=== PATIENT | male | born 1980 | race Caucasian/White ===

== ENCOUNTER 2020-12-21 14:38 | Outpatient (REF) | payer OTHER, SELFPAY ==
--- NOTE | ~2020-12-21 | XR_ITS ---
EXAMINATION: XR LUMBOSACRAL SPINE CLINICAL INFORMATION: Dorsal pain. COMPARISON: None. TECHNIQUE: Three views of the lumbosacral spine. FINDINGS: There is maintained lumbar lordosis. The vertebral heights, alignment are normal. There is mild loss of L4-L5 disc height. The rest the disc heights are normal. There is mild ventral spondylosis L3 vertebra. No visible acute fracture, dislocation or lytic process. The paravertebral soft tissues are normal. The SI joints are symmetrical and normal. XR/XR lumbar spine 2-3V IMPRESSION: Mild degenerative disc changes L4-L5 and L5-S1 disc levels. There is mild ventral spondylosis. No acute fracture, dislocation or subluxation seen.
== END 2020-12-21 14:39 | disposition home or self-care (01) ==
LOC: HO.XRAY 14:38
PROVIDERS: PCP Internal Medicine; Visit Provider Internal Medicine
DX: M54.9 Dorsalgia, unspecified (principal)
CPT/HCPCS: 72100

== ENCOUNTER 2021-06-10 09:01 | Outpatient (REF) | payer OTHER, SELFPAY ==
[2021-06-10 10:29] LABS: MANUAL DIFF FLAG NO
[2021-06-10 10:45] LABS: Basophils Percent Auto 0.3 % (0-2); Eosinophils Absolute Auto 0.2 X10*3/uL (0.0-0.4); Eosinophils Percent Auto 2.2 % (0-4); Hemoglobin 14.1 g/dl (14.0-18.0); Imm Gran Abs Auto 0.04 X10*3/uL (0.00-0.03); Imm Gran Pct Auto 0.4 % (0.0-0.4); Lymphocytes Absolute Auto 1.9 X10*3/uL (1.2-4.9); Lymphocytes Percent Auto 18.5 % (20-40); Mean Corpuscular HGB Conc 32.8 g/dl (31.0-36.0); Mean Corpuscular Hemoglobin 27.2 pg (27.0-33.0); Mean Corpuscular Volume 82.9 fL (80-98); Mean Platelet Volume 10.4 fL (9.4-12.4); Monocytes Absolute Auto 0.8 X10*3/uL (0.1-1.2); Monocytes Percent Auto 7.5 % (2-11); Neutrophils Absolute Auto 7.5 X10*3/uL (2.0-8.3); Neutrophils Percent Auto 71.1 % (45-73); Platelet Count 226 X10*3/uL (160-400); Red Blood Count 5.19 X10*6/uL (4.60-5.80); Red Cell Distribution Width 13.4 % (11.0-16.0); White Blood Count 10.5 X10*3/uL (4.8-10.8)
[2021-06-10 11:09] LABS: Alanine Aminotransferase 26 U/L (0-40); Albumin Level 4.1 g/dL (3.5-5.0); Alkaline Phosphatase 94 U/L (39-117); Anion Gap 12 (12-20); Aspartate Amino Transferase 24 U/L (5-37); Bilirubin Total 0.3 mg/dL (0.0-1.0); Blood Urea Nitrogen 9 mg/dL (9-16); Calcium 9.2 mg/dL (8.4-10.2); Carbon Dioxide 27 mmol/L (22-29); Chloride 104 mmol/L (96-108); Cholesterol 168 mg/dL; Estimated Glomerular Filt Rate > 60; Glucose Fasting 109 mg/dL (60-99); HDL Cholesterol 48 mg/dL; LDL Cholesterol Calculated 102 mg/dl; Potassium 4.4 mmol/L (3.3-5.1); Sodium 139 mmol/L (135-145); Total Protein 6.8 g/dL (6.5-8.0); Triglycerides 91 mg/dL
[2021-06-10 11:14] LABS: Thyroid Stimulating Hormone 0.84 uIU/mL (0.32-4.0)
== END 2021-06-10 09:02 | disposition home or self-care (01) ==
LOC: HO.LAB 09:01
PROVIDERS: PCP Internal Medicine; Visit Provider Internal Medicine
DX: Z00.00 Encounter for general adult medical examination without abnormal findings (principal); E11.9 Type 2 diabetes mellitus without complications; E03.9 Hypothyroidism, unspecified; R30.0 Dysuria
CPT/HCPCS: 36415; 80053; 80061; 84443; 85025; 87086

== ENCOUNTER 2021-06-17 09:22 | Outpatient (REF) | payer OTHER, SELFPAY ==
[2021-06-17 10:13] LABS: Appearance Urine CLOUDY; Color Urine YELLOW; Glucose Urine UA NEG (NEG); Leukocyte Esterase Urine 3+ (NEG); Nitrite Urine NEG (NEG); UACC Culture Trigger YES; Urine Blood 3+ (NEG); Urine Ketones NEG (NEG); Urine Protein 1+ MG/DL (NEG-TRACE)
[2021-06-17 11:02] LABS: Sperm Urine NOTED
== END 2021-06-17 09:23 | disposition home or self-care (01) ==
LOC: HO.LAB 09:22
PROVIDERS: PCP Internal Medicine; Visit Provider Internal Medicine
DX: R30.0 Dysuria (principal)
CPT/HCPCS: 81001; 81003; 87086

== ENCOUNTER 2021-06-29 09:54 | Outpatient (REF) | payer OTHER, SELFPAY ==
--- NOTE | ~2021-06-29 | XR_ITS ---
EXAMINATION: XR ABDOMEN KUB CLINICAL INDICATION: Hematuria. COMPARISON: None TECHNIQUE: AP view of the abdomen. FINDINGS: The bowel gas pattern is normal with no evidence of ileus or obstruction. No unusual soft tissue calcifications are noted. No renal calculi are visualized. There are several calcified phleboliths in the pelvis. The bones are unremarkable. XR/XR KUB IMPRESSION: Unremarkable examination.
== END 2021-06-29 09:55 | disposition home or self-care (01) ==
LOC: HO.XRAY 09:54
PROVIDERS: PCP Internal Medicine; Visit Provider Internal Medicine
DX: R31.9 Hematuria, unspecified (principal); I87.8 Other specified disorders of veins
CPT/HCPCS: 74018

== ENCOUNTER 2021-07-03 10:44 | Outpatient (REF) | payer OTHER, SELFPAY ==
--- NOTE | ~2021-07-03 | XR_ITS ---
EXAMINATION: XR LUMBOSACRAL SPINE CLINICAL INFORMATION: Dorsalgia. COMPARISON: Radiographs dated 12/21/2020. TECHNIQUE: AP and lateral views of the lumbar spine and lateral view of the lumbosacral junction. FINDINGS: The vertebral bodies and posterior elements are normal. The disc spaces are preserved, and the vertebral alignment is normal. There is multi-level mild lower thoracic and lumbar spondylosis. The paraspinal soft tissues are normal. XR/XR lumbar spine 2-3V IMPRESSION: 1. No acute fracture or spondylolisthesis is seen. 2. The disc spaces are well-maintained. 3. There is multi-level mild lower thoracic and lumbar spondylosis.
[2021-07-03 18:05] LABS: Appearance Urine HAZY; Color Urine YELLOW; Glucose Urine UA NEG (NEG); Leukocyte Esterase Urine 2+ (NEG); Nitrite Urine NEG (NEG); PH 6.5 (5.0-8.0); UACC Culture Trigger YES; Urine Blood TRACE (NEG); Urine Ketones NEG (NEG); Urine Protein TRACE MG/DL (NEG-TRACE)
[2021-07-03 18:20] LABS: Bacteria Urine TRACE /LPF; WBC Urine 50-75 /HPF (0-4)
== END 2021-07-03 10:45 | disposition home or self-care (01) ==
LOC: HO.XRAY 10:44
PROVIDERS: PCP Internal Medicine; Visit Provider Internal Medicine
DX: M54.9 Dorsalgia, unspecified (principal); R31.9 Hematuria, unspecified; R30.0 Dysuria
CPT/HCPCS: 72100; 81001; 87086

== ENCOUNTER 2021-07-18 13:36 | Outpatient (REF) | payer OTHER, SELFPAY ==
--- NOTE | ~2021-07-18 | US_ITS ---
EXAMINATION: US SCROTUM CLINICAL INFORMATION: Scrotal pain/swelling. COMPARISON: None TECHNIQUE: A sonogram of the scrotum was performed assessing hung-scale appearance and color Doppler flow. Spectral Doppler analysis of the arterial and venous flow were performed in the testes bilaterally. FINDINGS: RIGHT: Right testicle measures 4.6 x 2.7 x 3.3 cm, volume 21.5 mL. No focal testicular parenchymal lesions are visualized except for focal calcification. Spectral Doppler analysis of the arterial and venous flow is normal in the right testis. Right epididymal head is normal in size. There is a small right hydrocele. No varicocele is seen. Right epididymal Doppler flow is normal. LEFT: Left testicle measures 4.5 x 2.5 x 2.8 cm, volume 16.5 mL. No focal testicular parenchymal lesions are visualized except for focal calcification. Spectral Doppler analysis of the arterial and venous flow is normal in the left testis. Left epididymal head is normal in size. No left hydrocele or varicocele is seen. Left epididymal Doppler flow is normal. US/US scrotum IMPRESSION: Bilateral echogenic testicular calcifications slightly larger than the right. No other focal testicular lesion. There is normal vascular flow seen to both testes and epididymis on Doppler exam. Small right hydrocele.
== END 2021-07-18 13:37 | disposition home or self-care (01) ==
LOC: HO.US 13:36
PROVIDERS: PCP Internal Medicine; Visit Provider Internal Medicine
DX: N50.82 Scrotal pain (principal)
CPT/HCPCS: 76870

== ENCOUNTER 2021-10-11 10:17 | Outpatient (REF) | payer OTHER, SELFPAY ==
[2021-10-11 10:51] LABS: Binax Internal Control QC Valid; Binax Lot number: 9864; Binax Now Covid-19 Ag Positive (Negative)
== END 2021-10-11 10:18 | disposition home or self-care (01) ==
LOC: HO.LAB 10:17
PROVIDERS: Visit Provider Internal Medicine
DX: Z20.822 Contact with and (suspected) exposure to COVID-19 (principal)
CPT/HCPCS: C9803

== ENCOUNTER → 2021-11-06 15:25 | Outpatient (BNVA) | payer OTHER, SELFPAY | PROVIDERS: PCP Internal Medicine; Visit Provider Urology ==

== ENCOUNTER 2022-06-13 09:48 | Outpatient (REF) | payer OTHER, SELFPAY ==
[2022-06-13 10:13] LABS: MANUAL DIFF FLAG NO
[2022-06-13 10:29] LABS: Basophils Absolute Auto 0.1 X10*3/uL (0.0-0.2); Basophils Percent Auto 1.1 % (0-2); Eosinophils Absolute Auto 0.1 X10*3/uL (0.0-0.4); Eosinophils Percent Auto 2.1 % (0-4); Imm Gran Abs Auto 0.01 X10*3/uL (0.00-0.03); Imm Gran Pct Auto 0.2 % (0.0-0.4); Lymphocytes Absolute Auto 1.7 X10*3/uL (1.2-4.9); Lymphocytes Percent Auto 35.2 % (20-40); Mean Corpuscular HGB Conc 33.3 g/dl (31.0-36.0); Mean Corpuscular Hemoglobin 27.9 pg (27.0-33.0); Mean Corpuscular Volume 83.8 fL (80.0-98.0); Mean Platelet Volume 9.7 fL (9.4-12.4); Monocytes Absolute Auto 0.4 X10*3/uL (0.1-1.2); Monocytes Percent Auto 7.5 % (2-11); Neutrophils Absolute Auto 2.5 x10*3/uL (2.0-8.3); Neutrophils Percent Auto 53.9 % (45-73); Platelet Count 241 X10*3/uL (160-400); Red Blood Count 5.01 X10*6/uL (4.60-5.80); Red Cell Distribution Width 13.5 % (11.0-16.0); White Blood Count 4.7 X10*3/uL (4.8-10.8)
[2022-06-13 10:56] LABS: Alanine Aminotransferase 37 U/L (0-40); Albumin Level 4.3 g/dL (3.5-5.0); Alkaline Phosphatase 55 U/L (39-117); Anion Gap 13 (12-20); Aspartate Amino Transferase 34 U/L (5-37); Bilirubin Total 0.5 mg/dL (0.0-1.0); Blood Urea Nitrogen 14 mg/dL (9-16); Calcium 9.1 mg/dL (8.4-10.2); Carbon Dioxide 29 mmol/L (22-29); Chloride 104 mmol/L (96-108); Cholesterol 227 mg/dL; Estimated Glomerular Filt Rate > 60; Glucose Fasting 90 mg/dL (60-99); HDL Cholesterol 60 mg/dL; LDL Cholesterol Calculated 119 mg/dl; Potassium 4.4 mmol/L (3.3-5.1); Sodium 142 mmol/L (135-145); Total Protein 7.1 g/dL (6.5-8.0); Triglycerides 241 mg/dL
== END 2022-06-13 09:49 | disposition home or self-care (01) ==
LOC: HO.LAB 09:48
PROVIDERS: PCP Internal Medicine; Visit Provider Internal Medicine
DX: Z13.0 Encounter for screening for diseases of the blood and blood-forming organs and certain disorders involving the immune mechanism (principal); I10 Essential (primary) hypertension; E78.5 Hyperlipidemia, unspecified
CPT/HCPCS: 36415; 80053; 80061; 85025

== ENCOUNTER 2023-04-16 13:23 | Outpatient (AMB) | payer OTHER, SELFPAY ==
[2023-04-16 13:23] VITALS: BP 110/80; PULSE 90; O2SAT 97; BMI 28.4
--- NOTE | 2023-04-16 13:23 | A.OFFPC_ITS ---
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 by: Self / Same As Patient Allergies Seasonal Allergies Allergy (Intermediate, Verified 04/16/23 13:24) sneezing, runny nose Medication List - Last Reconciled 04/16/23 by Joe Doty MD No Known Home Meds Tobacco use date assessed: 04/16/23 Dental Screening Dental Screen Date: 04/16/23 Did you have a dental visit in the last 12 months?: Yes Did you have a dental problem in the last 6 months where you did not have access to dental care?: No Was dental information given to patient?: Patient has dentist HPI L arm pain HPI Details left shoulder pain for a month; lifts alot at work [facility] Medical History Allergic rhinitis Hematuria Scrotal pain Surgical History No history of previous surgery Family History Mother No problems noted. Father No problems noted. 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 1. Little interest or pleasure in doing things: not at all 2. Feeling down, depressed, or hopeless: not at all 3. Trouble falling or staying asleep, or sleeping too much: not at all 4. Feeling tired or having little energy: not at all 5. Poor appetite or overeating: not at all 6. Feeling bad about yourself - or that you are a failure or have let yourself or your family down: not at all 7. Trouble concentrating on things, such as reading the newspaper or watching television: not at all 8. Moving or speaking so slowly that other people could have noticed. Or the opposite - being so fidgety or restless that you have been moving around a lot more than usual: not at all 9. Thoughts that you would be better off or of hurting yourself in some way: not at all Total score: 0 Depression Screening Interpretation: Negative Source: Developed by Drs. Shaun Lewis, Tatiana Whitmore, Denis Sharp and colleagues, with an educational sari from [employer]. Thrive Questionnaire Date Thrive assessed: 04/16/23 I am a: Patient What is your living situation today?: I have a steady place to live Within the past 12 months, did the food you bought not last and you didn't have the money to get more?: Never true Within the past 12 months, did you worry whether your food would run out before you got money to buy more?: Never true Do you have trouble paying for medicines?: No Do you have trouble getting transportation to medical appointments?: No Do you have trouble paying your heating and electricity bill?: No Do you have trouble taking care of your child, family member or friend?: No Do you have trouble with day-to-day activities such as bathing, preparing meals, shopping, managing finances, etc.?: No Are you currently unemployed and looking for a job?: No Are you interested in more education?: No Please select the resources that you would like help with: None Currently or been in a relationship where the following occur: no concerns reported AUDIT C Alcohol Use Questionnaire (AUDIT-C) 1. How often do you have a drink containing alcohol?: 2-4 times a month 2. How many drinks containing alcohol do you have on a typical day when you are drinking?: 1 or 2 3. How often do you have six or more drinks on one occasion?: Never Total Score: 2 Score Reviewed/Action Taken: Yes MANUEL-7 AMB Questionnaire MANUEL-7 Date MANUEL - 7 assessed: 04/16/23 Feeling nervous, anxious, or on edge: 1 = Several days Not being able to stop or control worryin = Several days Worrying too much about different things: 0 = Not at all Trouble relaxin = Not at all Being so restless that it is hard to sit still: 0 = Not at all Becoming easily annoyed or irritable: 0 = Not at all Feeling afraid as if something awful might happen: 0 = Not at all Total MANUEL-7 score (0-4 normal; 5-9 mild; 10-14 moderate; 15-21 severe): 2 Source: Developed by Drs. Shaun Lewis, Tatiana Whitmore, Denis Sharp and colleagues, with an educational sari from [employer]. MANUEL-7 Assessment Billing MANUEL-7 Assessment Tool: MANUEL-7 Assessment 91618 Review of Systems Const Denies chills, Denies headache(s) and Denies weight loss ENT Denies headache(s) Card Denies chest pain, Denies syncope, Denies irregular heart rhythm and Denies dyspnea Resp Denies chest congestion, Denies cough and Denies dyspnea GI Denies abdominal pain, Denies change in stool character, Denies nausea and Denies vomiting Musc Denies deformity and Denies joint swelling Neuro Denies confusion, Denies syncope and Denies headache(s) Psych Denies confusion Physical exam (Primary Care) Vital Signs: Last Vital Signs Pulse 90 04/16/23 13:23 BP 110/80 04/16/23 13:23 Pulse Ox 97 04/16/23 13:23 Oxygen Delivery Method Room Air 04/16/23 13:23 BMI result Body Mass Index 28.4 Tobacco/Smoking Status: Tobacco use Status Tobacco use date assessed 04/16/23 04/16/23 13:29 Patient Tobacco Use Status Current everyday Tobacco 04/16/23 13:29 Tobacco use type Cigarette 04/16/23 13:29 e-Cigarette/Vaping Use Never Used 04/16/23 13:29 PHQ-9: PHQ-9 Score PHQ-9: Total score 0 04/16/23 13:29 Depression Screening Interpretation: Negative Thrive Assessment: Date of Thrive Assessment Date Thrive assessed 04/16/23 04/16/23 13:29 Currently or been in a relationship where the following occur: no concerns repo rted Const General: No confusion Orientation/consciousness: patient oriented x3 and No confusion Eyes General: appearance normal, both eyes and all related structures Eyelids: Yes eyelids normal Conjunctivae: conjunctivae normal Neck Neck: Yes normal visual inspection and Yes supple Resp Effort & Inspection: normal respiratory effort Auscultation: clear to auscultation bilaterally Cardio Jugular venous distension: no JVD Rate: regular rate Rhythm: regular rhythm Heart sounds: S1 normal heart sound present and S2 normal heart sound present Scrotum: scrotal swelling on the left Neuro General: patient oriented x3 and No confusion Extrem General: Yes full ROM Assessment and Plan Assessment & Plan (1) Shoulder pain: Code(s): M25.519 - Pain in unspecified shoulder Plan: xr and pt Orders: Orders XR shoulder LT min 2V Today M25.519 - Pain in unspecified shoulder XR cervical spine 2V Today M54.2 - Cervicalgia PT Evaluation and Treatment Today M25.519 - Pain in unspecified shoulder Medications: New naproxen (Naprosyn) 500 mg PO BID PRN 60 tabs 0RF pain 30 days Coding Level of Care Code Est Pt Level 3 (51735) Diagnoses Shoulder pain M25.519 Additional Codes MANUEL-7 Assessment Billing - MANUEL-7 Assessment Tool: MANUEL-7 Assessment 41520 ([id number]) PHQ-9 - 76758 - PHQ-9 Billing: Y ([id number])
== END 2023-04-16 13:39 | disposition home or self-care (01) ==
PROVIDERS: PCP Internal Medicine; Visit Provider Internal Medicine
DX: M25.519 Pain in unspecified shoulder (principal)
CPT/HCPCS: 99213

== ENCOUNTER 2023-04-16 13:48 | Outpatient (REF) | payer OTHER, SELFPAY ==
--- NOTE | ~2023-04-16 | XR_ITS ---
EXAMINATION: XR CERVICAL SPINE CLINICAL INFORMATION: Cervicalgia COMPARISON: None available. TECHNIQUE: 3 views of the cervical spine were obtained. FINDINGS: There is straightening of cervical lordosis with mild narrowing cough C5-C6 and C6/C7 intervertebral disc spaces and marginal spurring soft tissues unremarkable XR/XR cervical spine 2V IMPRESSION: Mild degenerative changes in cervical spine
--- NOTE | ~2023-04-16 | XR_ITS ---
EXAMINATION: XR SHOULDER, LEFT CLINICAL INFORMATION: Left knee pain COMPARISON: None available. TECHNIQUE: AP external rotation, Grashey, scapular Y, and axillary views of the left shoulder. FINDINGS: The bones and soft tissues are normal. No fracture. Glenohumeral and acromioclavicular alignment is anatomic with normal joint space. No abnormal soft tissue calcifications. XR/XR shoulder LT min 2V IMPRESSION: Normal left shoulder.
== END 2023-04-16 13:49 | disposition home or self-care (01) ==
LOC: HO.XRAY 13:48
PROVIDERS: PCP Internal Medicine; Visit Provider Internal Medicine
DX: M54.2 Cervicalgia (principal); M25.512 Pain in left shoulder
CPT/HCPCS: 72040; 73030

== ENCOUNTER 2023-05-13 09:47 | Outpatient (REF) | payer OTHER, SELFPAY ==
--- NOTE | ~2023-05-13 | XR_ITS ---
EXAMINATION: XR SCAPULA, LEFT CLINICAL INFORMATION: Other specified acquired deformities musculoskeletal system COMPARISON: Left shoulder x-rays April 16, 2023 TECHNIQUE: AP and scapular Y views of the left scapula. FINDINGS: The bones and soft tissues are normal. No scapular fracture. Glenohumeral and acromioclavicular alignment is normal. Visualized left-sided ribs and lung parenchyma are unremarkable. XR/XR scapula LT IMPRESSION: Normal left scapula.
== END 2023-05-13 09:48 | disposition home or self-care (01) ==
LOC: HO.HOSX 09:47
PROVIDERS: PCP Internal Medicine; Visit Provider Physical Medicine & Rehabilitation
DX: M95.8 Other specified acquired deformities of musculoskeletal system (principal); M75.100 Unspecified rotator cuff tear or rupture of unspecified shoulder, not specified as traumatic; M12.819 Other specific arthropathies, not elsewhere classified, unspecified shoulder
CPT/HCPCS: 73010

== ENCOUNTER 2023-05-13 09:47 | Outpatient (AMB) | payer OTHER, SELFPAY ==
[2023-05-13 09:59] VITALS: BMI 28.3
--- NOTE | 2023-05-13 09:59 | MHC.OFFVIS ---
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 States his pain started about 2 months ago. He explains he does a lot of heavy lifting at work. 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 States he is limited ROM, has discomfort when sleeping, radiating pain to his shoulder blade. States at times it feels tender and affects his neck movement. Patient was seen by his PCP who prescribe him P.T. Currently states he has constant pain and has not started P.T, states he wants to be fully evaluated before he starts P.T. Allergies Seasonal Allergies Allergy (Intermediate, Verified 05/13/23 09:59) sneezing, runny nose Medication List - Last Reconciled 05/13/23 by Chikis Worley MD ibuprofen 200 mg PO Q6H PRN HPI HPI Comments History of Present Illness Details Physical job involving a lot of lifting. Denies any specific fall or injuries. [place] like muscle pain at first, but lasted 2 months. Points on left shoulder blade. Unable to lay on the left side. Limited ROM on left shoulder. Right handed. Still working. Positive numbness - feels 1st-2nd digit tingling. Limited left arm movement/ weakness Treatment done so far: NSAIDs - delete tried naproxen, made him sleep; takes Alleve instead 600mg in the morning therapy -hasn't started but unable due to pain PFS Medical History Allergic rhinitis Hematuria Scrotal pain Surgical History No history of previous surgery Family History Mother No problems noted. Father No problems noted. 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 MSK: Inspection reveals appropriate head and neck positioning. No pain with palpation over the neck musculature. Left scapular winging noted. Cervical ROM was full. Spurling's sign negative but had difficulty looking towards left shoulder. Left shoulder ROM limited abduction. No ligamentous laxity or crepitance. No increased effusion. Empty can test is unable to do. Drop arm test is deferred. Speed's test is negative. Neer's test is positive left. Hawkin's test is positive left. Strength is 5/5 in all muscle groups tested. No increased tone noted. Neurological: Neurologic examination of the upper and lower extremities was nonfocal with intact sensation, muscle stretch reflexes and without focal motor deficits except difficulty in left shoulder due to pain. Velazquez?s negative bilaterally. Babinski was down going bilaterally. Clonus was negative. Gait is non-antalgic without loss of balance. Results Reviewed Results Reviewed: I independently reviewed the results of the following: Left shoulder x-ray unremarkable XR/XR shoulder LT min 2V IMPRESSION: Normal left shoulder. I reviewed records from the following: PCP Assessment & Plan Assessment & Plan (1) Rotator cuff tear arthropathy: Code(s): M75.100 - Unspecified rotator cuff tear or rupture of unspecified shoulder, not specified as traumatic; M12.819 - Other specific arthropathies, not elsewhere classified, unspecified shoulder (2) Winging of scapula: Code(s): M95.8 - Other specified acquired deformities of musculoskeletal system Plan Concern for left rotator cuff tear. Exam shows winging of left scapula. Advice relative rest. I do not want him to lift with left upper extremity. Will give him a work note. Perhaps he can do more desk or supervisory tasks for now until further evaluation. May apply ice. Will increase ibuprofen to 800 mg t.i.d. with full stomach for 7-10 days. Will get scapular x-ray today. Ultimately we need an MRI to rule out rotator cuff tear. Hold off on physical therapy for now until MRI is done. Assessment and plan discussed with patent, and patient was agreeable. All questions were answered thoroughly. Follow-up after MRI. Orders: Orders MR shoulder LT wo con Today M12.819 - Other specific arthropathies, not elsewhere classified, unspecified shoulder, M75.100 - Unspecified rotator cuff tear or rupture of unspecified shoulder, not specified as traumatic, M95.8 - Other specified acquired deformities of musculoskeletal system XR scapula LT Today M95.8 - Other specified acquired deformities of musculoskeletal system Medications: New ibuprofen 800mg every 8 hours for 7 days, with full stomach 800 mg PO Q8H 7 days 21 tabs 1RF Coding Level of Care Code New Pt Level 4 (66629) Diagnoses Rotator cuff tear arthropathy M75.100; M12.819 Winging of scapula M95.8
== END 2023-05-13 10:44 | disposition home or self-care (01) ==
PROVIDERS: PCP Internal Medicine; Visit Provider Physical Medicine & Rehabilitation
DX: M75.102 Unspecified rotator cuff tear or rupture of left shoulder, not specified as traumatic (principal); M12.819 Other specific arthropathies, not elsewhere classified, unspecified shoulder; M95.8 Other specified acquired deformities of musculoskeletal system
CPT/HCPCS: 99204

== ENCOUNTER 2023-06-11 18:57 | Outpatient (REF) | payer OTHER, SELFPAY | END 2023-06-11 18:58 | disposition home or self-care (01) | LOC: HO.MRI 18:57 | PROVIDERS: PCP Internal Medicine; Visit Provider Physical Medicine & Rehabilitation | DX: Z13.89 Encounter for screening for other disorder (principal) ==

== ENCOUNTER 2023-06-17 11:34 | Outpatient (AMB) | payer OTHER, SELFPAY ==
[2023-06-17 11:45] VITALS: BP 130/78; PULSE 80; RESP 17; O2SAT 98; BMI 27.5
--- NOTE | 2023-06-17 11:45 | MHC.PC.OV ---
Vital Signs 06/17/23 11:45 Height 5 ft 4.57 in Weight 163 lb 6 oz BMI 27.5 BP 130/78 Blood Pressure Location Lt brachial Position Sitting Respiration 17 Pulse 80 Pulse Source Pulse Oximeter Pulse Oximetry (%) 98 Oxygen Delivery Method Room Air Intake Visit Reasons: Trans. of Care from [facility] Note: Transfer of care from Dr. Doty. Adult Specialist Required: No Accompanied by: Self / Same As Patient Allergies Seasonal Allergies Allergy (Intermediate, Verified 06/17/23 12:01) sneezing, runny nose Medication List - Last Reconciled 06/17/23 by Gian Huerta PA-C ibuprofen 800 mg PO Q8H 7 days Tobacco use date assessed: 04/16/23 Dental Screening Dental Screen Date: 06/17/23 Did you have a dental visit in the last 12 months?: Yes Did you have a dental problem in the last 6 months where you did not have access to dental care?: No Was dental information given to patient?: Patient has dentist HPI Trans. of Care from [facility] HPI Details Patient is a 43-year-old male here today for a transfer care visit. Patient's past medical history significant for tobacco dependency. He has had recent episode left shoulder decreased range of motion and pain with radiculopathy down into left hand. Has seen orthopedic and was to get MRI of his right shoulder though unfortunately canceled his appointment. He reports his shoulder pain has gotten much improved. Has not done any physical therapy. He still has some numbness in his index finger. Of note x-ray of cervical spine does show mild arthritis in mild narrowing at C5-C6 C6-C7. Otherwise he does admit to smoking a few cigarettes per day, reports 1 pack can last him 1 week. He does understand he needs to completely quit. Did review labs and noted borderline high total cholesterol at most recent fasting lipid panel. [facility] Medical History Allergic rhinitis Hematuria Scrotal pain Surgical History No history of previous surgery Family History Mother No problems noted. Father No problems noted. 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 Shaun Lewis, Tatiana Whitmore, Denis Sharp and colleagues, with an educational sari from [employer]. Review of Systems Const Denies headache(s) Eyes Denies loss of vision ENT Denies vertigo, Denies dizziness, Denies headache(s) and Denies sore throat Card Denies chest pain, Denies leg edema and Denies lightheadedness Resp Denies cough, Denies hemoptysis and Denies wheezing GI Denies abdominal pain, Denies melena, Denies constipation, Denies diarrhea and Denies vomiting Denies dysuria, Denies urinary frequency and Denies urinary urgency Musc Denies arthralgias, Denies joint swelling, Denies numbness and Denies tingling Neuro Denies Abnormal speech present, Denies behavioral changes, Denies vertigo, Denies dizziness, Denies headache(s), Denies loss of vision, Denies memory loss, Denies numbness and Denies tingling Psych Denies anxiety, Denies behavioral changes, Denies depression, Denies memory loss and Denies panic attacks Fabio/Lymph Denies easy bleeding and Denies easy bruising Aller/Immun Denies wheezing Physical exam (Primary Care) Vital Signs: Last Vital Signs Pulse 80 06/17/23 11:45 Resp 17 06/17/23 11:45 BP 130/78 06/17/23 11:45 Pulse Ox 98 06/17/23 11:45 Oxygen Delivery Method Room Air 06/17/23 11:45 BMI result Body Mass Index 27.5 Tobacco/Smoking Status: Tobacco use Status Tobacco use date assessed 04/16/23 06/17/23 11:53 Patient Tobacco Use Status Current everyday Tobacco 06/17/23 11:53 Tobacco use type Cigarette 06/17/23 11:53 e-Cigarette/Vaping Use Never Used 06/17/23 11:53 Are you ready to quit: No Tobacco cessation counseling provided: Yes Relapse Prevention: discussed the importance of a supportive environment, discussed negative mood or depression after quitting, weight gain after smoking is common and discussed dietary, exercise and/or lifestyle changes Number of minutes spent counselin CPT code: 24652 - 4-10 Minutes Thrive Assessment: Date of Thrive Assessment Date Thrive assessed 04/16/23 06/17/23 11:53 Const General: healthy appearing, no acute distress, alert and awake Nutritional Appearance: well nourished Orientation/consciousness: oriented to person, oriented to place and oriented to time HENMT Ears: TM's normal bilaterally General nose exam: Normal nasal mucous membranes and turbinates present Eyes Conjunctivae: conjunctivae normal Sclerae: sclerae normal Pupils: Equal, round and reactive pupils present Neck Neck: Yes no lymphadenopathy and Yes no JVD Thyroid: Thyroid normal Carotids: no bruits Resp Effort & Inspection: normal respiratory effort and not tachypneic Auscultation: no crackles, no rales, no rhonchi and no wheezes Cardio Rate: regular rate Rhythm: regular rhythm Heart sounds: no murmurs and normal S1 and S2 GI Palpation (GI): Soft to palpation, nontender, no hepatomegaly and no splenomegaly Auscultation: normal bowel sounds Skin General skin exam: no rashes or lesions noted and dry skin Neuro General: oriented to person, oriented to place and oriented to time Cranial nerves: Yes Equal, round and reactive pupils present Speech: No Abnormal speech present Gait exam (Neuro): Normal gait present Motor exam (neuro): no tremor noted Extrem Other: UPPER EXTREMITY: NORMAL RANGE OF MOTION OF THE LEFT SHOULDER, NEGATIVE EMPTY CAN AND CAPUTO TEST 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 Will work on lifestyle modifications on reducing high cholesterol foods. (2) Screening for diabetes mellitus (DM): Code(s): Z13.1 - Encounter for screening for diabetes mellitus (3) Cervical radicular pain: Code(s): M54.12 - Radiculopathy, cervical region Plan: Patient's signs symptoms appear to be related to his cervical spine disc disease. He reports symptoms have gotten better over the last few weeks. He seen orthopedic for his left shoulder presumed tendinopathy. He would like to get reorder for left shoulder MRI. Believe his symptoms are coming from his neck as cervical spine x-ray showing C5-C6 C6-C7 narrowing thus will send for physical therapy and pain management for evaluation of possible cortisone injection. (4) Tobacco dependence: Code(s): F17.200 - Nicotine dependence, unspecified, uncomplicated Plan: He does admit to smoking a few cigarettes per day. Offer nicotine replacement though patient declines. Will try to work on quitting cigarette smoking on his own. Orders: Orders MR shoulder LT wo con Today M12.819 - Other specific arthropathies, not elsewhere classified, unspecified shoulder, M75.100 - Unspecified rotator cuff tear or rupture of unspecified shoulder, not specified as traumatic Lipid Panel Today E78.9 - Disorder of lipoprotein metabolism, unspecified Comprehensive [place]. Panel Fast Today Z13.1 - Encounter for screening for diabetes mellitus PT Evaluation and Treatment Today M54.12 - Radiculopathy, cervical region Referrals Pain Management Referral M54.12 - Radiculopathy, cervical region Coding Level of Care Code Est Pt Level 4 (12912) Diagnoses Borderline high cholesterol E78.9 Screening for diabetes mellitus (DM) Z13.1 Cervical radicular pain M54.12 Tobacco dependence F17.200 Additional Codes Vital Signs *Quality* - CPT code: 76030 - 4-10 Minutes ([id number])
== END 2023-06-17 12:17 | disposition home or self-care (01) ==
PROVIDERS: PCP Internal Medicine; Visit Provider Physician Assistant
DX: E78.9 Disorder of lipoprotein metabolism, unspecified (principal); Z13.1 Encounter for screening for diabetes mellitus; M54.12 Radiculopathy, cervical region; F17.210 Nicotine dependence, cigarettes, uncomplicated
CPT/HCPCS: 99214